=== PATIENT | female | born 1995 | race Caucasian/White ===

== ENCOUNTER → 2023-05-06 06:48 | Outpatient (REF) | payer OTHER, SELFPAY | LOC: RAD 06:48 | PROVIDERS: ATTENDING PHYSICIAN Internal Medicine Critical Care Medicine; FAMILY PHYSICIAN Internal Medicine | DX: R91.1 Solitary pulmonary nodule (principal) | CPT/HCPCS: 71250 ==

== ENCOUNTER → 2024-06-01 06:28 | Outpatient (REF) | payer BC, SELFPAY ==
[2024-06-01 07:43] LABS: % Basophils 0.4 % (0-2); % Eosinophils 1.4 % (0-6); % Lymphocytes 17.5 % (20.5-51.1); % Monocytes 7.6 % (1.7-9.3); % Neutrophils 72.1 % (42.2-75.2); Absolute Eosinophils 0.1 10^3/uL (0-0.7); Absolute Immature Granulocytes 0.1 10^3/uL (0-0.05); Absolute Lymphocytes 1.5 10^3/uL (1.2-3.4); Absolute Monocytes 0.6 10^3/uL (0.1-0.6); Absolute Neutrophils 6.1 10^3/uL (1.4-6.5); Hematocrit 40.9 % (37.0-47.0); Hemoglobin 13.7 g/dL (12.0-16.0); Mean Corp Hgb Conc. 33.5 g/dL (33.0-37.0); Mean Corpuscular Hgb 30.2 pg (27.0-31.0); Mean Corpuscular Volume 90.1 fL (81.0-99.0); Mean Platelet Volume 10.7 fL (7.4-10.4); Nucleated Red Blood Cells % 0 %; Platelet Count 302 10^3/uL (130-400); Red Blood Cell Count 4.54 10^6/uL (4.20-5.40); Red Cell Dist. Width 12.3 % (11.5-14.5); White Blood Cell Count 8.4 10^3/uL (4.8-10.8)
[2024-06-01 08:58] LABS: Hepatitis B Surface Antigen Negative (Negative)
[2024-06-01 09:08] LABS: Urine Albumin Negative (Neg - Trace); Urine Bilirubin Negative (Negative); Urine Character Clear (Clear); Urine Color Yellow; Urine Glucose Negative (Negative); Urine Ketone Negative (Negative); Urine Leukocyte Negative (Negative); Urine Nitrite Negative (Negative); Urine Occult Blood Negative (Negative); Urine Specific Gravity 1.015 (<1.030); Urine Urobilinogen Negative (Neg - 1+)
[2024-06-01 09:16] LABS: Hepatitis B Core Ab, Total Negative (Negative); Hepatitis C Antibody Negative (Negative)
[2024-06-01 09:20] LABS: Rubella Positive
[2024-06-01 15:16] LABS: Syphilis/T. pallidum Ab Reflex Negative (Negative)
[2024-06-01 15:42] LABS: HIV Combo Negative (Negative)
== END ==
LOC: REG 06:28
PROVIDERS: ATTENDING PHYSICIAN Nurse Practitioner Family; FAMILY PHYSICIAN Internal Medicine
DX: Z32.01 Encounter for pregnancy test, result positive (principal)
CPT/HCPCS: 36415; 80055; 81003; 83036; 84702; 86704; 86803; 87086; 87389

== ENCOUNTER → 2024-06-30 16:53 | Outpatient (REF) | payer BC, SELFPAY | LOC: PNTC 16:53 | PROVIDERS: ATTENDING PHYSICIAN Obstetrics & Gynecology | DX: Z36.0 Encounter for antenatal screening for chromosomal anomalies (principal); Z36.82 Encounter for antenatal screening for nuchal translucency | CPT/HCPCS: 76801; 76813 ==

== ENCOUNTER → 2024-08-23 16:17 | Outpatient (REF) | payer BC, SELFPAY | LOC: PNTC 16:17 | PROVIDERS: ATTENDING PHYSICIAN Obstetrics & Gynecology | DX: Z34.00 Encounter for supervision of normal first pregnancy, unspecified trimester (principal) | CPT/HCPCS: 76805; 76817 ==

== ENCOUNTER 2025-01-01 13:45 | Observation (INO) | payer BC, SELFPAY ==
[2025-01-01 13:55] VITALS: BP 124/71; BMI 31.8
== END 2025-01-01 14:51 | disposition home or self-care (01) ==
LOC: LDRP 13:45
PROVIDERS: ADMITTING PHYSICIAN Obstetrics & Gynecology; ATTENDING PHYSICIAN Obstetrics & Gynecology; FAMILY PHYSICIAN Internal Medicine
DX: O36.8130 Decreased fetal movements, third trimester, not applicable or unspecified (principal); Z3A.39 39 weeks gestation of pregnancy; O43.893 Other placental disorders, third trimester
CPT/HCPCS: 36415; 86850; 86900; 86901; G0378

== ENCOUNTER → 2025-01-13 10:24 | Outpatient (REF) | payer BC, SELFPAY | LOC: PNTC 10:24 | PROVIDERS: ATTENDING PHYSICIAN Obstetrics & Gynecology | DX: O48.0 Post-term pregnancy (principal) | CPT/HCPCS: 59025; 76815 ==

== ENCOUNTER 2025-01-15 16:27 | Inpatient (IN) | payer BC, SELFPAY ==
[2025-01-15 16:44] VITALS: BP 135/80; BMI 32.1
[2025-01-15 19:02] LABS: Hematocrit 41.0 % (37.0-47.0); Hemoglobin 14.0 g/dL (12.0-16.0); Mean Corp Hgb Conc. 34.1 g/dL (33.0-37.0); Mean Corpuscular Volume 88.9 fL (81.0-99.0); Nucleated Red Blood Cells % 0 %; Platelet Count 249 10^3/uL (130-400); Red Cell Dist. Width 14.0 % (11.5-14.5)
[2025-01-15] MEDS: LR 1000 IV (21:07)
[2025-01-15] MEDS: FENTANYL/BUPIVACAINE 100 EPIDURAL (21:36)
[2025-01-15] MEDS: SUBLIMAZE 100 MCG EPIDURAL (21:36)
[2025-01-16] MEDS: LR 1000 IV (02:06)
[2025-01-16] MEDS: FENTANYL/BUPIVACAINE 100 EPIDURAL ×2 (04:02→09:59)
[2025-01-16] MEDS: SUBLIMAZE 100 MCG EPIDURAL (04:27)
[2025-01-16] MEDS: PRENATAL PLUS PO (12:19)
[2025-01-16] MEDS: PITOCIN 30 UNITS/NSS 500 ML IV ×2 (12:49→15:07)
[2025-01-16] MEDS: XYLOCAINE-MPF 1% VIAL 30 ML INFIL (15:16)
[2025-01-16 15:39] LABS: Cord ABG Comment CORD BLOOD
[2025-01-16 15:41] LABS: B.E. Cord ABG -7.7 mMOL/L; HCO3 Cord ABG 18.3 mmol/L; O2 Saturation % Cord ABG 74.6 %; PCO2 Cord ABG 38 mmHg; PO2 Cord ABG 41 mmHg; pH Cord ABG 7.29
[2025-01-16 15:44] LABS: B.E. Cord ABG -11.8 mMOL/L; HCO3 Cord ABG 19.5 mmol/L; O2 Saturation % Cord ABG 30.4 %; PCO2 Cord ABG 69 mmHg; PO2 Cord ABG 22 mmHg; pH Cord ABG 7.06
[2025-01-16] MEDS: MOTRIN 600 MG PO (16:30)
[2025-01-16] MEDS: COLACE 100 MG PO (19:57)
[2025-01-16] MEDS: TYLENOL 650 MG PO (21:55)
[2025-01-17] MEDS: MOTRIN 600 MG PO ×3 (01:17→21:16)
[2025-01-17] MEDS: DILAUDID 2 MG PO ×2 (04:08→08:17)
[2025-01-17 05:26] LABS: Hematocrit 33.0 % (37.0-47.0); Hemoglobin 11.6 g/dL (12.0-16.0)
[2025-01-17] MEDS: COLACE 100 MG PO ×2 (08:16→21:15)
[2025-01-17] MEDS: PRENATAL PLUS 1 TABLET PO (08:16)
[2025-01-17] MEDS: TORADOL 15 MG IV (14:59)
[2025-01-17] MEDS: TYLENOL 650 MG PO (21:15)
[2025-01-18] MEDS: TYLENOL 650 MG PO (06:28)
[2025-01-18] MEDS: MOTRIN 600 MG PO (06:28)
[2025-01-18] MEDS: COLACE 100 MG PO (09:06)
[2025-01-18] MEDS: PRENATAL PLUS 1 TABLET PO (09:06)
[2025-01-18 10:29] VITALS: BP 123/69; PULSE 59
--- NOTE | 2025-01-18 10:41 | CM ---
CM notified that [facility] is asking for a commode due to tail bone pain. CM contacted DME supplier to inquire regarding cost; ultimately it was suggested that the cost using insurance would be much more than ordering on [employer]. CM contacted pt's
mother to discuss and they will order the commode on [employer] as suggested.
RN notified of same and will reinforce with [facility] prior to discharge.
[2025-01-18 13:10] LABS: Syphilis/T. pallidum Ab Reflex Negative (Negative)
== END 2025-01-18 14:19 | disposition home or self-care (01) | DRG 807 ==
LOC: LDRP 16:27
PROVIDERS: ADMITTING PHYSICIAN Obstetrics & Gynecology
PROC: 0KQM0ZZ Repair Perineum Muscle, Open Approach (ICD-10-PCS; 2025-01-16)
PROC: 10E0XZZ Delivery of Products of Conception, External Approach (ICD-10-PCS; 2025-01-16)
DX: O48.0 Post-term pregnancy (principal); Z37.0 Single live birth; Z3A.41 41 weeks gestation of pregnancy; O77.0 Labor and delivery complicated by meconium in amniotic fluid; O66.0 Obstructed labor due to shoulder dystocia; O70.1 Second degree perineal laceration during delivery
CPT/HCPCS: 82803; 85014; 85018; 85025; 86780; 86850; 86900; 86901; 88307; 97162